=== PATIENT | male | born 1970 | race Caucasian/White ===

== ENCOUNTER 2024-07-21 04:10 | Emergency (ER) | payer OTHER, SELFPAY ==
[2024-07-21] VITALS (10 sets, daily range): BP systolic 105–141; BP diastolic 66–95; PULSE 62–73; RESP 16–29; TEMP 36.6; O2SAT 94–99; BMI 26.2
--- NOTE | 2024-07-21 04:12 | DI.RAD.S_ITS ---
PROCEDURE: XR CHEST 1V INDICATIONS: chest pain TECHNIQUE: One view of the chest was acquired. COMPARISON: None. FINDINGS: Surgical changes and devices: None. Lungs and pleura: Lungs are clear. No pleural effusions or pneumothorax. Mediastinum: Mediastinal contours appear normal. Heart size is normal. Bones and chest wall: No suspicious bony lesions. Overlying soft tissues appear unremarkable. IMPRESSION: No acute cardiopulmonary abnormality is seen. This report is concordant with the overnight preliminary interpretation. Dictated by: Luisito Alexis M.D. on 07/21/2024 at 8:05 Approved by: Luisito Alexis M.D. on 07/21/2024 at 8:05
--- NOTE | 2024-07-21 04:13 | ED_ITS ---
HPI - Chest Pain General Chief Complaint: Chest Pain Stated Complaint: chest pain Time Seen by Provider: 07/21/24 04:12 History of Present Illness HPI narrative: Patient is a 53-year-old male with a past medical history of high blood pressure comes into the ED from home for evaluation of chest pain. He states that chest pain initially started at around 2:30 a.m. when he awoke. States it started in his back then went to the front sharp and shooting but nonpleuritic in nature, states that the last time he had the pain was approximately 1 hour ago states that he did take his normal lisinopril and is now not having any chest pain. He denies any other symptoms such as headache visual disturbances shortness breath fever chills nausea vomiting abdominal pain or any other GI/ symptoms time. He has not on any blood thinners no recent travel no known sick contacts no recent trauma. To note patient did mentioned that he has been having a cough for the past 3 weeks Related Data Home Medications Medication Instructions Recorded Confirmed lisinopril 5 mg tablet 5 mg DAILY 07/21/24 07/21/24 Allergies Allergy/AdvReac Type Severity Reaction Status Date / Time No Known Drug Allergies Allergy Verified 07/21/24 04:18 Review of Systems Review of Systems Narrative: General: Denies fever, chills, weight loss HEENT: Denies headache, eye drainage, eye irritation, head trauma, sore throat, voice change Cardiovascular: Positive chest pain, denies palpitations, shortness of breath, tachycardia Respiratory: Denies any shortness of breath, cough, wheeze, stridor GI/: Denies any abdominal pain, nausea, vomiting, diarrhea, bright red blood per rectum, melanotic stools, urinary frequency, urinary retention, dysuria, hematuria MSK: Denies any joint pain, muscle pains, swelling Skin: Denies any rashes, lesions, discoloration Neuro: Denies any headache, lightheadedness, dizziness, fainting, weakness Psych: Denies SI/HI Patient History Social History Smoking Status: Never smoker Exam Narrative Exam Narrative: General: Cooperative, comfortable, well-developed, not in acute distress HEENT: Normocephalic, atraumatic, PERRLA, normal sclera, eyelids normal, Neck: Active full range of motion, atraumatic Chest: Normal to inspection, negative crepitus, no overlying erythema ecchymosis Respiratory: Normal respiratory effort, not in acute respiratory distress, clear to auscultation bilaterally negative cough, wheeze, tachypnea, rhonchi, rales Cardiology: Regular rate rhythm negative gallop, murmur, rubs GI/: Normal to inspection, soft, nonrigid, no tenderness to palpation, exam deferred MSK: Full range of active range of motion of all 4 extremities, atraumatic Skin: No rashes lesions noted Neuro: Alert awake oriented x3, moves all 4 extremities spontaneously, cranial nerves intact, able to answer all questions appropriately follows commands appropriately Psych: Cooperative, negative suicidal or homicidal ideations Initial Vital Signs Initial Vital Signs: Vital Signs Pulse Rate 73 07/21/24 04:15 Pulse Oximetry 99 07/21/24 04:15 Course Orders Ordered: ED Orders 07/21/24 04:12 XR chest 1V Stat EKG-12 Lead Stat 07/21/24 04:25 Complete Blood Count AUTO DIFF Stat Comprehensive Metabolic Panel Stat Covid-19 + FLU A/B + RSV - PCR Stat Lipase Stat Magnesium Stat NT-proBNP (BNP-Adult 18+) Stat PTT Partial Thromboplastin [place] Stat Prothrombin Time INR Stat Troponin & CK Cardiac Panel Stat 07/21/24 06:28 Trop I [Troponin I] Stat Discontinued Medications Aspirin (Aspirin 81 Mg Chew Tab) 324 mg PO NOW ONE Stop: 07/21/24 04:13 Last Admin: 07/21/24 04:26 Dose: 324 mg Documented By: HNG Vital Signs Vital signs: Vital Signs - 8 hr 07/21/24 04:15 07/21/24 04:16 07/21/24 04:16 Temperature Pulse Rate 73 71 Respiratory Rate Blood Pressure 141/95 H Pulse Oximetry 99 97 Oxygen Delivery Method 07/21/24 04:19 07/21/24 04:30 07/21/24 04:31 Temperature 97.9 F Pulse Rate 70 71 72 Respiratory Rate 16 16 17 Blood Pressure 141/95 H Pulse Oximetry 99 96 97 Oxygen Delivery Method Room Air 07/21/24 04:31 07/21/24 05:00 07/21/24 05:00 Temperature Pulse Rate 63 Respiratory Rate 23 Blood Pressure 137/78 122/84 Pulse Oximetry 94 Oxygen Delivery Method 07/21/24 05:24 07/21/24 05:24 07/21/24 05:30 Temperature Pulse Rate 63 Respiratory Rate 25 H Blood Pressure 127/82 124/84 Pulse Oximetry 95 Oxygen Delivery Method 07/21/24 05:30 07/21/24 06:00 07/21/24 06:00 Temperature Pulse Rate 65 66 Respiratory Rate 24 29 H Blood Pressure 120/71 Pulse Oximetry 94 95 Oxygen Delivery Method Room Air Room Air 07/21/24 06:30 07/21/24 06:30 Temperature Pulse Rate 62 Respiratory Rate 21 Blood Pressure 105/66 Pulse Oximetry 94 Oxygen Delivery Method MDM - Chest Pain Differential Diagnosis Differential diagnosis: Likely pneumothorax, st elevation myocardial infarction, costochondritis, chest pain and other (Pneumonia, electrolyte abnormality, ACS) Lab Data 07/21/24 04:25 07/21/24 04:25 Labs: Lab Results 07/21/24 07/21/24 Range/Units 04:25 06:28 WBC 6.4 (4.5-11.0) X10^3/uL RBC 4.95 (4.5-5.9) X10^6/uL Hgb 15.1 (13.5-17.5) g/dL Hct 43.1 (41-53) % MCV 87.0 (80-100) fL MCH 30.4 (26-34) PG MCHC 34.9 (30-36) % RDW 12.9 (11.6-14.8) % Plt Count 207 (150-400) X10^3/uL Neut % (Auto) Not Reportable Lymph % (Auto) Not Reportable [place] % (Auto) Not Reportable Eos % (Auto) Not Reportable Baso % (Auto) Not Reportable Lymph # (Auto) Not Reportable [place] # (Auto) Not Reportable Baso # (Auto) Not Reportable Total Counted 100 Seg Neutrophils % 54.0 (38-70) % Band Neutrophils % 3.0 (3-7) % Lymphocytes % (Manual) 34.0 (25-45) % Monocytes % (Manual) 4.0 (2-11) % Eosinophils % (Manual) 4.0 (2-4) % Basophils % (Manual) 1.0 (0-1) % Neutrophils # (Manual) 3648 (3829-9058) /uL Platelet Estimate Adequate on smear RBC Morphology See below Macrocytosis 1+ H PT TNP INR TNP APTT TNP Sodium 135 L (137-145) mmol/L Potassium 4.6 (3.4-5.1) mmol/L Chloride 102 (98-107) mmol/L Carbon Dioxide 23 (22-32) mmol/L BUN 21 H (9-20) mg/dL Creatinine 0.64 L (0.66-1.25) mg/dL Estimated GFR > 60 (>60) mL/min BUN/Creatinine Ratio 32.8 H (6-22) Glucose 169 H (70-100) mg/dL Calcium 8.8 (8.4-10.2) mg/dL Magnesium 1.9 (1.6-2.3) mg/dL Total Bilirubin 1.0 (0.2-1.3) mg/dL AST 65 H (17-59) IU/L ALT 83 H (<50) IU/L Alkaline Phosphatase 75 (38-126) U/L Total Creatine Kinase 53 L (55-170) U/L Troponin I 0.022 0.020 (0.01-0.034) ng/mL NT-Pro-B Natriuret Pep < 20 (<125) pg/mL Total Protein 7.7 (6.3-8.2) g/dL Albumin 4.5 (3.5-5.0) g/dL Globulin 3.2 (1.7-4.1) g/dL Albumin/Globulin Ratio 1.4 (1.0-2.8) Lipase 51 (23-300) U/L SARS-CoV-2 (PCR) Negative (Negative) Influenza A (RT-PCR) Flu a negative (NEGATIVE) Influenza B (RT-PCR) Flu b negative (NEGATIVE) RSV (PCR) Positive A (Negative) Imaging Data Chest x-ray: Radiologist's Impression: Preliminary read showing no acute cardiopulmonary abnormalities ECG Data Interpretation: EKG interpreted ED physician sinus 68 beats per minute QTC [address] changes no STEMI MDM Narrative Medical decision making narrative: 53-year-old male past medical history of hypertension presents for chest pain states that it started at around 2:30 a.m., states it has been intermittent and just stopped at around 3:00 a.m.. States that he took his normal lisinopril prior to arrival. To note patient states that he has been having a cough for the past 3 weeks. At evaluation patient without any chest pain shortness of breath. Patient had EKG lab work imaging performed here in the emergency department. EKG nonischemic in nature. Respiratory panel positive for RSV, chest x-ray without any acute cardiopulmonary abnormality, lab work without any leukocytosis, Chem panel without any acute abnormalities BNP normal initial troponin 0.022 repeat troponin 0.020 heart score 2. Patient was instructed to follow up with primary care and medical center manager in outpatient setting he verbalized understanding of this was given strict return precautions understands and agrees with being discharged home with outpatient follow up Discharge Plan Departure Patient Disposition: Home Clinical Impression: Chest pain, Respiratory syncytial virus (RSV) Instructions: DI for Respiratory Syncytial Virus -- Adults Activity Restrictions/Additional Instructions: Please follow up with primary care and Cardiology in outpatient setting Please read the discharge instructions sheet carefully and bring all papers to all doctor follow-up visits, as it may contain information that your doctor may want to see. Disease processes change and evolve, if your symptoms worsen or if you develop any new symptoms that are concerning to you please return for evaluation. Your evaluation today does not show any evidence of any life- threatening/serious illnesses requiring admission to the hospital or surgery. Please follow-up with your doctor for re-evaluation in approximately 1 day. Seek immediate medical attention for any worrisome symptoms. *If you do not have a primary care provider please contact the [facility] Resource line at [phone]. They will ask some questions about your medical history and help get you set up with a doctor in the community. Prescriptions: No Action lisinopril 5 mg tablet 5 mg DAILY Referrals: Wai Machuca MD [Physician] - Stand Alone Forms: Patient Portal/API/Survey
--- NOTE | 2024-07-21 04:17 | EKG_ITS ---
[address] [address] Test Date: 2024-07-21 Pat Name: Felix Johnston Department: [facility] Room: Gender: Male Tree Surgeon: : 1970 Requested By: Order Number: [id number] Reading MD: Ethan Darby Measurements Intervals [place] Rate: 68 P: 26 [place]: 164 QRS: 54 QRSD: 94 T: 53 QT: 398 QTc: 423 Interpretive Statements Normal sinus rhythm Cannot rule out Anterior infarct , age undetermined Electronically Signed On 07-21-2024 18:35:58 PST by Ethan Darby
[2024-07-21] MEDS: ASPIRIN 81 MG CHEW TAB 324 MG PO (04:26)
[2024-07-21 05:11] LABS: Influenza A - CEPHEID Flu A NEGATIVE (NEGATIVE); Influenza B - CEPHEID Flu B NEGATIVE (NEGATIVE); Respiratory Syncytial Virus POSITIVE (Negative)
[2024-07-21 05:26] LABS: COVID-19 CEPHEID 4-PLEX PCR Negative (Negative)
[2024-07-21 05:40] LABS: Alanine Aminotransferase 83 IU/L (<50); Albumin 4.5 g/dL (3.5-5.0); Albumin Globulin Ratio 1.4 (1.0-2.8); Alkaline Phosphatase 75 U/L (38-126); Aspartate Aminotransferase 65 IU/L (17-59); BUN Creatinine Ratio 32.8 (6-22); Blood Urea Nitrogen 21 mg/dL (9-20); Calcium 8.8 mg/dL (8.4-10.2); Carbon Dioxide 23 mmol/L (22-32); Chloride 102 mmol/L (98-107); Creatine Kinase 53 U/L (55-170); Estimated Glomerular Filt Rate > 60 mL/min (>60); Globulin 3.2 g/dL (1.7-4.1); Glucose 169 mg/dL (70-100); Lipase 51 U/L (23-300); Magnesium 1.9 mg/dL (1.6-2.3); Potassium 4.6 mmol/L (3.4-5.1); Sodium 135 mmol/L (137-145); Total Protein 7.7 g/dL (6.3-8.2)
[2024-07-21 05:49] LABS: Hematocrit 43.1 % (41-53); Hemoglobin 15.1 g/dL (13.5-17.5); Mean Corpuscular Hemoglobin 30.4 PG (26-34); Platelet Count 207 X10^3/uL (150-400); Red Blood Cell Count 4.95 X10^6/uL (4.5-5.9); Red Cell Distribution Width 12.9 % (11.6-14.8); White Blood Cell Count 6.4 X10^3/uL (4.5-11.0)
[2024-07-21 05:51] LABS: NT-proBNP (BNP-Adult 18+) < 20 pg/mL (<125); Troponin I 0.022 ng/mL (0.01-0.034)
[2024-07-21 05:55] LABS: Add Manual Diff / Slide Review YES
[2024-07-21 05:56] LABS: Mean Corpuscular HGB Conc 34.9 % (30-36)
[2024-07-21 06:02] LABS: Macrocytosis 1+; Platelet Estimate Adequate on smear
[2024-07-21 06:03] LABS: Neutrophils Absolute Manual 3648 /uL (3000-5900); Total Cells Counted 100
--- NOTE | 2024-07-21 06:29 | PC.NURSE ---
Repeat troponin drawn from existing IV line without complications.
== END 2024-07-21 07:28 | disposition home or self-care (01) ==
PROVIDERS: Emergency Provider Student in an Organized Health Care Education/Training Program
DX: R07.9 Chest pain, unspecified (principal); I10 Essential (primary) hypertension; J98.8 Other specified respiratory disorders; B97.4 Respiratory syncytial virus as the cause of diseases classified elsewhere
CPT/HCPCS: 0241U; 36415; 71045; 80053; 82550; 83690; 83735; 83880; 84484; 85007; 85025; 93005; 99284

== ENCOUNTER 2025-03-27 08:18 | Emergency (ER) | payer OTHER, SELFPAY ==
[2025-03-27 08:30] VITALS: BP 127/88; PULSE 68; RESP 18; TEMP 36.6; O2SAT 100; BMI 27.4
--- NOTE | 2025-03-27 08:39 | ED_ITS ---
HPI - General Adult
--- NOTE | 2025-03-27 08:39 | ED.GENADULT ---
HPI - General Adult General Chief complaint: Diabetic Problem Stated complaint: High blood sugar 289 sent from [facility] Time Seen by Provider: 03/27/25 08:39 Source: patient Mode of arrival: Ambulatory History of Present Illness HPI narrative: 54-year-old gentleman history of hypertension seen at urgent care today for increased urination, 8 lb weight loss, and increased thirst and epigastric pain ongoing for the last 2 weeks seen for over 2 chest pain here from urgent care. Patient denies active chest pain, shortness breath, cough, fever, chills, back pain, hematuria, rectal bleeding, nausea, vomiting, diarrhea. Family history of diabetes. Other than what is stated 14 point review system is negative. Related Data Home Medications ?Medication ?Instructions ?Recorded ?Confirmed lisinopril 5 mg tablet 5 mg DAILY 07/21/24 03/27/25 Previous Rx's ?Medication ?Instructions ?Recorded insulin glargine 100 unit/mL 10 unit (0.1 mL) SUBCUT QPM #10 mL 03/27/25 subcutaneous solution (Lantus U-100 Insulin) insulin lispro 100 unit/mL 5 unit (0.05 mL) SUBCUT TID #15 mL 03/27/25 subcutaneous pen (Humalog KwikPen (U-100) Insulin) Allergies Allergy/AdvReac Type Severity Reaction Status Date / Time No Known Drug Allergies Allergy Verified 03/27/25 08:31 Review of Systems Review of Systems ROS Unobtainable: All systems reviewed & are unremarkable except as noted in HPI and below Patient History Social History Smoking Status: Never smoker Smoking Status: Never smoker Exam Narrative Exam Narrative: GENERAL: [54] year old patient appears stated age. Well-developed patient, in mild distress. HEAD: Atraumatic. Normocephalic. EYES: Pupils equal round and reactive. Extraocular motions intact. No scleral icterus. No injection or drainage. ENT: Nose without bleeding, purulent drainage. Throat without erythema, tonsillar hypertrophy or exudate. Airway patent. NECK: Trachea midline. Non tender CARDIOVASCULAR: Regular rate and rhythm without murmurs, gallops, or rubs. RESPIRATORY: Clear to auscultation. Breath sounds equal bilaterally. No wheezes, rales, or rhonchi. GASTROINTESTINAL: Abdomen soft, non-tender, nondistended. EXTREMITIES: No edema or joint tenderness. BACK: Nontender without deformity or crepitance. No flank tenderness. NEURO: AOx3. SKIN: No rash or erythema of visible areas Initial Vital Signs Initial Vital Signs: Vital Signs Temperature 98 F 03/27/25 08:30 Pulse Rate 68 03/27/25 08:30 Respiratory Rate 18 03/27/25 08:30 Blood Pressure 127/88 03/27/25 08:30 Pulse Oximetry 100 03/27/25 08:30 Oxygen Delivery Method Room Air 03/27/25 08:30 Course Orders Ordered: ED Orders 03/27/25 08:40 XR chest 1V Stat A1C [Hemoglobin A1C% w Est Avg Glu] Stat Complete Blood Count AUTO DIFF Stat Comprehensive Metabolic Panel Stat Ketones (Beta-Hydroxybutyrate) Stat Lipase Stat Magnesium Stat NT-proBNP (BNP-Adult 18+) Stat Troponin I Stat EKG-12 Lead Stat Discontinued Medications Sodium Chloride (Normal Saline 0.9%) 1,000 mls @ 1,000 mls/hr IV BOLUS ONE Stop: 03/27/25 09:39 Last Infusion: 03/27/25 09:36 Dose: Infused Documented By: Admin: 03/27/25 08:55 Dose: 1,000 mls/hr Documented By: LEANNA Vital Signs Vital signs: Vital Signs - 8 hr 03/27/25 08:30 Temperature 98 F Pulse Rate 68 Respiratory Rate 18 Blood Pressure 127/88 Pulse Oximetry 100 Oxygen Delivery Method Room Air Medical Decision Making Lab Data 03/27/25 08:40 03/27/25 08:40 Labs: Lab Results 03/27/25 Range/Units 08:40 WBC 5.5 (4.5-11.0) X10^3/uL RBC 5.26 (4.5-5.9) X10^6/uL Hgb 16.1 (13.5-17.5) g/dL Hct 44.8 (41-53) % MCV 85.3 (80-100) fL MCH 30.6 (26-34) PG MCHC 35.9 (30-36) % RDW 13.0 (11.6-14.8) % Plt Count 221 (150-400) X10^3/uL Neut % (Auto) 49.8 L (50-75) % Lymph % (Auto) 37.4 (25-40) % [place] % (Auto) 6.8 (3-14) % Eos % (Auto) 3.7 (2-4) % Baso % (Auto) 2.3 H (0-2) % Neut # (Auto) 2800 (5427-0953) /uL Lymph # (Auto) 2100 (6015-7568) /uL [place] # (Auto) 400 (0-900) /uL Eos # (Auto) 200 (0-450) /uL Baso # (Auto) 100 (0-100) /uL Sodium 135 L (137-145) mmol/L Potassium 3.9 (3.4-5.1) mmol/L Chloride 101 (98-107) mmol/L Carbon Dioxide 25 (22-32) mmol/L BUN 13 (9-20) mg/dL Creatinine 0.60 L (0.66-1.25) mg/dL Estimated GFR > 60 (>60) mL/min BUN/Creatinine Ratio 21.7 (6-22) Glucose 299 H (70-99) mg/dL Hemoglobin A1c 9.6 H (4.0-6.0) % Calcium 9.2 (8.4-10.2) mg/dL Magnesium 1.8 (1.6-2.3) mg/dL Total Bilirubin 1.4 H (0.2-1.3) mg/dL AST 41 (17-59) IU/L ALT 70 H (<50) IU/L Alkaline Phosphatase 114 (38-126) U/L Troponin I < 0.012 (0.01-0.034) ng/mL NT-Pro-B Natriuret Pep < 20 (<125) pg/mL Total Protein 7.9 (6.3-8.2) g/dL Albumin 4.8 (3.5-5.0) g/dL Globulin 3.1 (1.7-4.1) g/dL Albumin/Globulin Ratio 1.5 (1.0-2.8) Lipase 55 (23-300) U/L Ketones 0.22 (<0.27) mmol/L Imaging Data Chest x-ray: Radiologist's Impression: [address] [address] XRay Report Signed Patient: Felix Johnston MR#: [id number] : 1970 Acct:[id number] Age/Sex: 54 / M Date of Service: 03/27/25 Loc: ED Accession Number: [id number] Procedure: XR chest 1V Ordering Provider: Hans Oneal D.O. PROCEDURE: XR CHEST 1V INDICATIONS: chest pain TECHNIQUE: One view of the chest was acquired. COMPARISON: [facility], CR, XR CHEST 1V, 07/21/2024, 4:13. FINDINGS: Surgical changes and devices: None. Lungs and pleura: Lungs are clear. No pleural effusions or pneumothorax. Mediastinum: Mediastinal contours appear normal. Heart size is normal. Bones and chest wall: No suspicious bony lesions. Overlying soft tissues appear unremarkable. IMPRESSION: No acute pulmonary process. ECG Data Interpretation: NSR HR 62 MS 156 QRS [address]-t wave change No previous EKG to compare MDM Narrative Medical decision making narrative: All lab work, vital signs, nurse triage note, medication list, previous ER visits, and all imaging studies reviewed. WBC 5.5 hemoglobin 16.1 platelet 221 sodium 135 potassium 3.9 chloride 101 CO2 25 BUN 13 creatinine 0.6 sugar 299 A1c 9.6 magnesium 1.8 T bili 1 point troponin less than 0.012 lipase 55 ketones 0.22. Chest x-ray showed no acute process. Patient given normal saline 1 L bolus 4 units regular insulin. Patient will be sent home on Lantus and Humalog and to be followed up with PCP to get established. Discharge Plan Departure Patient Disposition: Home Clinical Impression: Diabetes mellitus, new onset Instructions: DI for Diabetes Type 2 Activity Restrictions/Additional Instructions: Return with new or worsening symptoms. Please follow up with PCP to establish care. Prescriptions: New insulin glargine [Lantus U-100 Insulin] 100 unit/mL solution 10 unit SUBCUT QPM Qty: 10 0RF insulin lispro [Humalog KwikPen Insulin] 100 unit/mL insulin pen 5 unit SUBCUT TID Qty: 15 0RF No Action lisinopril 5 mg tablet 5 mg DAILY Referrals: Zahida Silva MD [Primary Care Provider, Family Practice] Stand Alone Forms: Patient Portal/API
--- NOTE | 2025-03-27 08:40 | EKG_ITS ---
[facility]
--- NOTE | 2025-03-27 08:40 | DI.RAD.S_ITS ---
PROCEDURE: XR CHEST 1V
[2025-03-27 08:52] LABS: Add Manual Diff / Slide Review NO; Hematocrit 44.8 % (41-53); Hemoglobin 16.1 g/dL (13.5-17.5); Lymphocytes Absolute Auto 2100 /uL (1100-4500); Mean Corpuscular HGB Conc 35.9 % (30-36); Mean Corpuscular Hemoglobin 30.6 PG (26-34); Mean Corpuscular Volume 85.3 fL (80-100); Platelet Count 221 X10^3/uL (150-400)
[2025-03-27] MEDS: SODIUM CHLORIDE 0.9% 1,000 ML 1000 ML IV (08:55)
[2025-03-27 09:03] LABS: HEMOLYSIS < 15 (0-50)
[2025-03-27 09:06] LABS: Hemoglobin A1C% w Est Avg Glu 9.6 % (4.0-6.0)
[2025-03-27 09:07] LABS: Alanine Aminotransferase 70 IU/L (<50); Albumin 4.8 g/dL (3.5-5.0); Albumin Globulin Ratio 1.5 (1.0-2.8); Alkaline Phosphatase 114 U/L (38-126); Blood Urea Nitrogen 13 mg/dL (9-20); Calcium 9.2 mg/dL (8.4-10.2); Carbon Dioxide 25 mmol/L (22-32); Chloride 101 mmol/L (98-107); Estimated Glomerular Filt Rate > 60 mL/min (>60); Globulin 3.1 g/dL (1.7-4.1); Glucose 299 mg/dL (70-99); Lipase 55 U/L (23-300); Magnesium 1.8 mg/dL (1.6-2.3); Potassium 3.9 mmol/L (3.4-5.1); Sodium 135 mmol/L (137-145); Total Protein 7.9 g/dL (6.3-8.2)
[2025-03-27 09:18] LABS: Ketones (Beta-Hydroxybutyrate) 0.22 mmol/L (<0.27)
[2025-03-27 09:19] LABS: NT-proBNP (BNP-Adult 18+) < 20 pg/mL (<125); Troponin I < 0.012 ng/mL (0.01-0.034)
[2025-03-27] MEDS: INSULIN REGULAR 100 UNIT/ML 3 ML VIAL IV (10:01)
[2025-03-27 10:35] VITALS: BP 147/88; PULSE 83; RESP 18; O2SAT 95
[2025-03-27 10:55] LABS: Cholesterol 200 mg/dL (140-199); HDL Cholesterol 43 mg/dL (40-60); Triglycerides 159 mg/dL (35-150)
[2025-03-27 11:20] VITALS: BP 147/83; PULSE 62; RESP 18; O2SAT 97
== END 2025-03-27 11:22 | disposition home or self-care (01) ==
PROVIDERS: Emergency Provider Family Medicine; PCP Student in an Organized Health Care Education/Training Program
DX: E11.65 Type 2 diabetes mellitus with hyperglycemia (principal); R07.9 Chest pain, unspecified
CPT/HCPCS: 36415; 71045; 80053; 80061; 82009; 82962; 83036; 83690; 83735; 83880; 84484; 85025; 93005; 96361; 96374; 99284; J7030